=== PATIENT | female | born 1965 | race African-American/Black ===

== ENCOUNTER 2017-07-09 07:47 | Outpatient (CLI) | payer OTHER ==
[2012-10-27 00:18] VITALS: BP 136/89
--- NOTE | 2017-07-09 08:36 | Diagnostic Imaging Report ---
RICARDA COOK~ [facility] [address] [facility] [address] [address] ~ ~ ~ ~ Report Submission Date: Jul 09, 2017 8:24:20 AM FILLER FEEDER Patient ~ Study Name: JAMIE SANTANA ~ Date: Jul 09, 2017 8:05:35 AM FILLER FEEDER ~ Modality Type: DX Gender: F ~ Description: LOWER EXTREMITY : 63 ~ Institution: [facility] Physician: RICARDA COOK ~ ~ ~ Examination: Plain film left ankle History: LEFT ANKLE, CONTINUED PAIN AND SWELLING, LATERAL ANKLE, AFTER FALL X1 MONTH AGO (Hx) Findings: 3 views of the left ankle demonstrates small avulsion off the medial malleolus. Talar dome of the distal fibula appear to be intact. Soft tissue swelling. Joint effusion. Posterior calcaneal spur. Impression: Medial malleolar avulsion. Generalized soft tissue swelling and joint effusion. ~ Electronically signed on Jul 09, 2017 8:24:20 AM FILLER FEEDER by: Ry SANTOS
[2017-07-09 08:48] LABS: eGFR (African) > 60; eGFR (Non-African) > 60
[2017-07-09 08:53] LABS: MEAN CORPUSCULAR VOLUME 90.6 fl (80.0-100.0)
[2017-07-09 09:24] LABS: SEGMENTED NEUTROPHILS % 44 % (39-79)
[2017-07-09 09:25] LABS: BASOPHILS % 1 % (0-2); EOSINOPHILS % 4 % (0-7); MONOCYTES % 3 % (0-11); PLT EST. EST. AGREES W/PLT CT
== END 2017-07-09 07:50 ==
LOC: LAB 07:47
PROVIDERS: ATTEND Physician Assistant
DX: Z00.00 Encounter for general adult medical examination without abnormal findings (principal); E78.00 Pure hypercholesterolemia, unspecified; S99.912A Unspecified injury of left ankle, initial encounter; Y99.9 Unspecified external cause status
CPT/HCPCS: 36415; 73610; 80053; 80061; 85025

== ENCOUNTER 2017-08-30 16:31 | Inpatient (IN) | payer OTHER ==
[2017-08-30] MEDS ORDERED: IPRATROPIUM/ALBUTEROL SULFATE 3 ML AMPUL.NEB NEB PRN (17:10)
[2017-08-30 17:48] VITALS: BMI 26.9
--- NOTE | 2017-08-30 18:42 | History and Physical Report ---
History of Present Illnes - History of Present Illness Reason for Visit: dyspnea History of Present Illness: 52-year-old -[place] female who presented to the emergency room with a several day history of increasing shortness of breath dyspnea. Patient does have a history of COPD and asthma. Patient has been using her medications as prescribed but continues to have some problems. Patient was given several high flow nebulization treatments in the emergency room and was still only able to maintain her SaO2 on room air in the high 80s. Patient states that she is been having a productive cough of some green phlegm for the last week. Patient been having increasing shortness of breath dyspnea. Patient denies any chest pain. Patient is not had any fever or chills. Patient was subsequently admitted to the hospital for further care and evaluation. - Past Medical History Cardiac: HTN, Hyperlipidemia Pulmonary: Asthma, COPD - Past Surgical History Past Surgical History: Cholecystectomy, , Other (right arm laceration repair) - Past Social History Smoke: # pack years (40), <1 pack per day (7 cigarette / day) Alcohol: Occassional Drugs: None Lives: With Family Domestic Violence: Negative - Health Maintenance Health Maintenance: Cholesterol, Influenza Vaccine, Mammogram. denies: Pneumococcal Vaccine, Colonoscopy Influenza Vaccine: Current for this Influenza Season Pneumonia Vaccine: No Resuscitation Status: Resusciation Status Resuscitation Status Full Code - Unable to Obtain History Unable to Obtain: No Review of Systems - Review of Systems Constitutional: Fever (not sure how high), Chills Eyes: negative: pain ENT: Nose Congestion, Throat Pain. negative: Ear Pain, Ear Discharge, Nose Pain , Nose Discharge, Mouth Pain, Mouth Swelling Respiratory: Cough, Shortness of Breath, SOB with Excertion, Sputum (green thick ). negative: Hemoptysis Cardiovascular: Palpitations. negative: Chest Pain, Orthopnea, Paroxysmal Noc. Dyspnea, Edema Gastrointestinal: Diarrhea (this AM). negative: Nausea, Vomiting, Abdominal Pain, Constipation, Melena, Hematochezia Genitourinary: negative: Dysuria, Frequency, Incontinence, Hematuria Musculoskeletal: Back Pain (chronic). negative: Neck Pain Skin: negative: Rash Neurological: negative: Weakness, Numbness, Incoordination, Change in Speech, Confusion, Seizures - Medications/Allergies Allergies/Adverse Reactions: Allergies Allergy/AdvReac Type Severity Reaction Status Date / Time No Known Allergies Allergy Verified 08/30/17 14:42 Home Medications: Home Medications Fluticasone Propionate [Flovent Hfa] 2 inh INH PRN PRN 08/30/17 Current Inpatient Medications: Current Inpatient Medications Albuterol/Ipratropium (Duoneb) 3 ml NEB Q4 PRN PRN Reason: Wheezing Diltiazem HCl (Cardizem Cd) 120 mg PO DAILY BAKARI Methylprednisolone Sodium Succinate (Solu-Medrol) 80 mg IVP Q12 BAKARI Sodium Chloride (Normal Saline Flush) 3 ml IV BID BAKARI Exam - Exam Vital Signs: Vital Signs (72 hours) 08/30/17 08/30/17 16:16 17:01 Temperature 97.0 F L Pulse Rate [ 108 H Pulse ox] Respiratory 24 Rate Blood Pressure 156/93 Blood Pressure 156/93 146/95 [Right Arm] O2 Sat by Pulse 97 Oximetry General: Alert, Oriented to Person, Oriented to Place, Oriented to Time, Cooperative HEENT: Atraumatic, PERRLA, EOMI, Mouth Mucous membr. moist/[place], Nose Mucous membr. moist/[place], Dentition Normal Neck: Normal Range of Motion Carotids: WNL Thyroid: WNL Lungs: Normal air movement, Speaks full Sentences, Wheezes (mild expiratory). No: Rales, Rhonchi Cardiovascular: Normal S1, Normal S2, No murmurs, Tachycardia (mild) Murmur: No: Systolic Murmur, Diastolic Murmur Abdomen: Normal bowel sounds, Soft, No tenderness, No hepatospenomegaly, No masses Integumentary: Normal, [place], Warm, Dry Extremities: No clubbing, No cyanosis, No edema, Normal pulses, No tenderness/ swelling Neurological: Normal gait, Normal speech, Strength Equal Bilat, Normal tone, Sensation intact, Cranial nerves 3-12 NL, Reflexes 2+ Psych/Mental Status: Mental status NL, Mood NL, Appropriate Affect, Intact Judgment Assessment/Plan - Assessment/Plan (1) Acute exacerbation of COPD with asthma Status: Acute (2) Essential hypertension Status: Chronic Assessment: continue with home meds VTE Assessment - RISK FACTOR SCORE VTE RISK FACTOR SCORES: AGE 40-60 YEARS, ACUTE RESPIRATORY FAILURE/SEVERE COPD - RISK VTE MODERATE RISK: SCORE OF 2 (RISK PROXIMAL DVT 2-4%) PROPHYAXIS NEEDED
[2017-08-30] MEDS ORDERED: NICOTINE 14mg PATCH.TD24 TD ONE (19:26)
[2017-08-30] MEDS: guaiFENesin DM 100 MG/10 MG/5 ML 118ML BOTTLE PO PRN (19:34)
[2017-08-30] MEDS: SALINE FLUSH 10 ML DISP.SYRIN IV SCH (19:38)
[2017-08-30] MEDS: NICOTINE 14mg PATCH.TD24 TD SCH (20:33)
[2017-08-30] MEDS: IPRATROPIUM/ALBUTEROL SULFATE 3 ML AMPUL.NEB NEB SCH (20:58)
[2017-08-31] MEDS: guaiFENesin DM 100 MG/10 MG/5 ML 118ML BOTTLE PO PRN ×4 (01:07→17:11)
[2017-08-31] MEDS: IPRATROPIUM/ALBUTEROL SULFATE 3 ML AMPUL.NEB NEB SCH ×6 (01:11→21:00)
[2017-08-31] MEDS ORDERED: NICOTINE 14mg PATCH.TD24 TD ONE (03:06)
[2017-08-31] MEDS: SALINE FLUSH 10 ML DISP.SYRIN IV SCH ×2 (05:40→21:01)
[2017-08-31] MEDS: methylPREDNISolone SOD SUCC 40 MG/ML VIAL IVP SCH ×3 (05:52→19:54)
[2017-08-31 06:56] LABS: BASOPHILS % 0.2 (0.0-1.5); MONOCYTES % 2.1 % (0.0-11.0); NEUTROPHILS # 10.6 # k/uL (1.4-7.7)
[2017-08-31 07:14] LABS: eGFR (African) > 60; eGFR (Non-African) > 60
[2017-08-31 07:26] LABS: EOSINOPHILS % 0.3 % (0.0-6.8); MEAN CORPUSCULAR VOLUME 90.4 fl (80.0-100.0)
[2017-08-31 07:27] LABS: MEAN CORPUSCULAR HEMOGLOBIN 28.7 pg (28.0-34.0)
[2017-08-31] MEDS ORDERED: NICOTINE 14mg PATCH.TD24 TD SCH ×3 (09:00→21:10)
[2017-08-31] MEDS: NICOTINE 14mg PATCH.TD24 TD SCH ×2 (09:00→09:14)
[2017-08-31] MEDS: DILTIAZEM HCL 120 MG CAP.ER.24H PO SCH (09:11)
[2017-09-01] MEDS: IPRATROPIUM/ALBUTEROL SULFATE 3 ML AMPUL.NEB NEB SCH ×3 (01:48→08:11)
[2017-09-01] MEDS: DILTIAZEM HCL 120 MG CAP.ER.24H PO SCH (09:14)
[2017-09-01] MEDS: methylPREDNISolone SOD SUCC 40 MG/ML VIAL IVP SCH (09:17)
[2017-09-01] MEDS: SALINE FLUSH 10 ML DISP.SYRIN IV SCH (09:23)
--- NOTE | 2017-09-01 12:37 | Discharge Summary ---
Discharge Summary - Discharge Sumary History of Present Illness: 52-year-old -[place] female who presented to the emergency room with a several day history of increasing shortness of breath dyspnea. Patient does have a history of COPD and asthma. Patient has been using her medications as prescribed but continues to have some problems. Patient was given several high flow nebulization treatments in the emergency room and was still only able to maintain her SaO2 on room air in the high 80s. Patient states that she is been having a productive cough of some green phlegm for the last week. Patient been having increasing shortness of breath dyspnea. Patient denies any chest pain. Patient is not had any fever or chills. Patient was subsequently admitted to the hospital for further care and evaluation. Home Medications: Ambulatory Orders Medication Instructions Recorded Fluticasone Propionate [Flovent 2 inh INH PRN PRN 08/30/17 Hfa] Cyclobenzaprine HCl 5 mg PO Q6 PRN #20 tablet 09/01/17 Ipratropium/Albuterol Sulfate 3 ml NEB Q4 PRN #60 ampul[facility] 09/01/17 [Duoneb] predniSONE [Muna] 5 mg PO DIRECTED #72 tablet. 09/01/17 Allergies/Adverse Reactions: Allergies Allergy/AdvReac Type Severity Reaction Status Date / Time No Known Allergies Allergy Verified 08/30/17 14:42 Discharge Summary: Patient was started on nebulized treatments with DuoNeb Q6 hours. Patient was started on IVs steroid therapy. Patient with maintain on supplemental oxygen therapy until her breathing status improved that she could be weaned off of it. At the time to discharge patient was still having some mild wheezing that was able to ambulate and maintain SaO2 in the lower 90s. Patient hypertension was maintained on her home medications.It was felt at the time of dismissal patient could be managed as an outpatient. Patient was subsequently discharged in stable condition. Patient was encouraged to stop smoking. I did talk to the patient about smoking cessation helps that were available. - Final Diagnosis (1) Acute exacerbation of COPD with asthma Problems: improved (2) Essential hypertension Problems: stable
--- NOTE | 2017-09-01 12:37 | Inpatient Progress Note ---
Subjective - Required Recertification Statement I anticipate X number of days because-include discharge plan: 1 day - Review of Systems Events since last encounter: Patient states that she seems to be doing better at this time. Is still having some wheezing but chest is not as tight. General: Denies: Chills Cardiovascular: Denies: Chest Pain, Orthopnea Gastrointestinal: Denies: Nausea, Vomiting, Abdominal Pain, Diarrhea Objective - Exam Vitals and I&O: Vital Signs Temp 97.6 F 09/01/17 09:23 Pulse 118 H 09/01/17 09:23 Resp 20 09/01/17 09:23 BP 150/97 09/01/17 09:23 Pulse Ox 95 09/01/17 09:23 Intake & Output 08/31/17 09/01/17 09/01/17 23:59 11:59 23:59 Intake Total 1960 960 360 Balance 1959 960 360 Intake: IV 10 Left Antecubital 10 Oral 1950 960 360 Other: # Voids 2 2 General: Alert, Oriented to Person, Oriented to Place, Oriented to Time, Cooperative, No acute distress Neck: Supple, No JVD Lungs: Normal air movement, Speaks full Sentences, Wheezes (mild exspiratory R>L ). No: Rales, Rhonchi Cardiovascular: Regular rate, Normal S1, Normal S2, No murmurs Abdomen: Normal bowel sounds, Soft, No tenderness - Results Results: Laboratory Results WBC 12.99 K/ul (4.00-12.00) H 08/31/17 06:15 RBC 4.32 M/ul (3.90-5.20) 08/31/17 06:15 Hgb 12.4 g/dL (12.0-16.0) 08/31/17 06:15 Hct 39.0 % (34.5-46.5) 08/31/17 06:15 MCV 90.4 fl (80.0-100.0) 08/31/17 06:15 MCH 28.7 pg (28.0-34.0) 08/31/17 06:15 MCHC 31.8 g/dL (30.0-36.0) 08/31/17 06:15 RDW 13.4 % (11.3-14.3) 08/31/17 06:15 Plt Count 290 K/mm3 (130-400) 08/31/17 06:15 Neut % (Auto) 81.9 % (39.0-79.0) H 08/31/17 06:15 Lymph % (Auto) 14.7 % (16.0-50.0) L 08/31/17 06:15 Mineral % (Auto) 2.1 % (0.0-11.0) 08/31/17 06:15 Eos % (Auto) 0.3 % (0.0-6.8) 08/31/17 06:15 Baso % (Auto) 0.2 (0.0-1.5) 08/31/17 06:15 Neut # (Auto) 10.6 # k/uL (1.4-7.7) H 08/31/17 06:15 Lymph # (Auto) 1.9 # k/uL (0.6-4.0) 08/31/17 06:15 Mineral # (Auto) 0.3 # k/uL (0.0-0.9) 08/31/17 06:15 Eos # (Auto) 0.0 # k/uL (0.0-0.6) 08/31/17 06:15 Baso # (Auto) 0.0 # k/uL (0.0-0.5) 08/31/17 06:15 Reactive Lymphs % 0.7 % (0.0-5.0) 08/31/17 06:15 Reactive Lymphs # 0.1 # k/uL (0.0-0.8) 08/31/17 06:15 Sodium 142 mmol/L (136-145) 08/31/17 06:15 Potassium 3.9 mmol/L (3.5-5.1) 08/31/17 06:15 Chloride 103 mmol/L (98-107) 08/31/17 06:15 Carbon Dioxide 26 mmol/L (22-30) 08/31/17 06:15 BUN 11 mg/dL (7-17) 08/31/17 06:15 Creatinine 0.50 mg/dL (0.52-1.04) L 08/31/17 06:15 Estimated Creat Clear 177 08/31/17 06:15 Est GFR ( Amer) > 60 (60-) 08/31/17 06:15 Est GFR (Non-Af Amer) > 60 (60-) 08/31/17 06:15 Glucose 136 mg/dL (74-106) H 08/31/17 06:15 Calcium 9.0 mg/dL (8.4-10.2) 08/31/17 06:15 Total Bilirubin 0.8 mg/dL (0.2-1.3) 08/31/17 06:15 AST 18 U/L (15-46) 08/31/17 06:15 ALT 23 U/L (13-69) 08/31/17 06:15 Alkaline Phosphatase 108 U/L (38-126) 08/31/17 06:15 Total Protein 8.1 g/dL (6.3-8.2) 08/31/17 06:15 Albumin 4.1 g/dL (3.5-5.0) 08/31/17 06:15 Assessment/Plan - Assessment/Plan (1) Acute exacerbation of COPD with asthma Status: Acute Current Visit: Yes Assessment: improved hope to discharge in AM (2) Essential hypertension Status: Chronic Current Visit: Yes Assessment: stable on home meds
[2017-09-01 14:36] VITALS: BP 142/82
== END 2017-09-01 14:15 | disposition home or self-care (01) | DRG 192 ==
LOC: SOUTH 16:31
PROVIDERS: ADMIT Physician Assistant; ATTEND Physician Assistant
DX: J44.1 Chronic obstructive pulmonary disease with (acute) exacerbation (principal); F17.210 Nicotine dependence, cigarettes, uncomplicated; I10 Essential (primary) hypertension; E78.5 Hyperlipidemia, unspecified
CPT/HCPCS: 80053; 85025; 94640; 94760; J2920; 71045; 82550; 82553; 83880; 84484; 96372; 99222; 99232; 99238; J2930; J1030

== ENCOUNTER 2017-09-23 13:39 | Outpatient (CLI) | payer OTHER | END 2017-09-23 14:16 | LOC: LABRHC 13:39 | PROVIDERS: ATTEND Physician Assistant | DX: Z12.4 Encounter for screening for malignant neoplasm of cervix (principal) | CPT/HCPCS: 88148; G0143 ==

== ENCOUNTER 2018-06-08 13:49 | Emergency (ER) | payer OTHER | END 2018-06-08 16:30 | disposition other institution (70) | LOC: ED 13:49 | DX: J44.1 Chronic obstructive pulmonary disease with (acute) exacerbation (principal); Z72.0 Tobacco use | CPT/HCPCS: 36415; 71045; 80053; 80320; 80377; 83880; 84484; 85025; 94640; 94760; 96365; 96375; 99285; J2930; J3411; J3490; G0480; G0481; J7030 ==

== ENCOUNTER 2018-06-08 13:49 | Inpatient (IN) | payer OTHER ==
--- NOTE | 2018-06-08 13:56 | ED Physician Documentation ---
General Adult - HISTORIAN Historian: patient - HPI Stated Complaint: shortness of breath Chief Complaint: Wheezing Onset: other ("a few days" ) Timing: still present Severity: mild Further Comments: yes (She states that she has shortness of air for a few weeks and low back pain for years. she is intoxicated states she drank "at least a fifth of vodka" and she is drinking due to her nephews . Denies any chest pain. Denies any fever.) Last known Well Code/Unknown Code: Unknown - ROS CONST: no problems - PAST HX Past History: COPD, hypertension Surgeries/Procedures: none Immunizations: UTD Allergies/Adverse Reactions: Allergies Allergy/AdvReac Type Severity Reaction Status Date / Time No Known Allergies Allergy Verified 06/08/18 14:14 - SOCIAL HX Smoking History: cigarettes Alcohol Use: heavy Drug Use: none - FAMILY HX Family History: No - VITAL SIGNS Vital Signs: Vital Signs Temp Pulse Resp BP Pulse Ox 142/82 09/07/17 12:13 - REVIEWED ASSESSMENTS Nursing Assessment Reviewed: Yes Vitals Reviewed: Yes Progress - Progress Progress: 1420: decrease wheezing throughout post neb. She is sleeping. Awakens easily. Denies pain DG 1505: Sleeping in room. Awakens to name. Denies pain. Explained results she agrees to plan DG 1540: walking to rest room oxygen levels drop to 79% and recovery without oxygen is 88-89% DG ED Results Lab/Radiology - Radiology Radiology Impressions: History: Evaluate lungs Comparison exam: None available for direct review. Findings: Single view of the chest demonstrates a normal cardiac and mediastinal silhouette. Tortuous aorta with vascular calcifications. Lung alfaro without focal infiltrate. No blunting of the costophrenic margins. Osseous structures are appropriate for age. Impression: No acute pulmonary process. Electronically signed on Jun 08, 2018 2:15:05 PM DOPE POURER by: Ry Noriega General Adult Physical Exam - PHYSICAL EXAM GENERAL APPEARANCE: no distress EENT: eye inspection normal, pharynx normal, no signs of dehydration, VICTORIANO, TM's nml NECK: normal inspection, lymphadenopathy (Submandibular left approx 3 cm firm non moveable - mild pain with palpation there for 2 days ("maybe 3"_)) RESPIRATORY: chest non-tender, wheezes CVS: reg rate & rhythm, heart sounds normal ABDOMEN: soft, normal bowel sounds, non-tender BACK: normal inspection SKIN: warm/dry, normal color EXTREMITIES: non-tender NEURO: oriented X3, speech/cognition abnml Discharge Clincal Impression: Acute exacerbation of COPD with asthma Elevated ETOH level Qualifiers: Blood alcohol level: 200-239 mg/100 ml Qualified Code(s): Y90.7 - Blood alcohol level of 200-239 mg/100 ml Comments: 1640: discussed case with Dr Kowalski and she will admit DG Condition: Fair Disposition: 09 ADMITTED INPATIENT Decision to Admit: [id number] Date of Decison to Admit: 06/08/18 Decision Time: 16:40
[2018-06-08] MEDS ORDERED: IPRATROPIUM/ALBUTEROL SULFATE 3 ML AMPUL.NEB NEB ONE ×2 (13:59→14:00)
[2018-06-08 14:18] LABS: BASOPHILS % 0.6 (0.0-1.5); EOSINOPHILS % 1.5 % (0.0-6.8); MEAN CORPUSCULAR HEMOGLOBIN 29.2 pg (28.0-34.0); MONOCYTES % 4.1 % (0.0-11.0); NEUTROPHILS # 4.8 # k/uL (1.4-7.7)
[2018-06-08 14:44] LABS: eGFR (Non-African) > 60
[2018-06-08] MEDS ORDERED: THIAMINE HCL 100 MG, MULTIVIT INFUSN,ADULT 1,VIT K 10 ML, FOLIC ACID 5 MG in 0.9 % SODI... IV ONE (14:49)
[2018-06-08] MEDS ORDERED: 0.9 % SODIUM CHLORIDE 1,000 ML IV ONE (14:53)
[2018-06-08] MEDS ORDERED: FOLIC ACID 5 MG/1 ML ONE (14:53)
[2018-06-08] MEDS ORDERED: THIAMINE HCL 200 MG/2 ML VIAL ONE (14:53)
[2018-06-08] MEDS ORDERED: MULTIVIT INFUSN,ADULT 1,VIT K 10 ML VIAL IV ONE (14:54)
[2018-06-08] MEDS ORDERED: methylPREDNISolone SOD SUCC 125 MG/2 ML VIAL IVP ONE (15:42)
[2018-06-08] MEDS: IPRATROPIUM/ALBUTEROL SULFATE 3 ML AMPUL.NEB NEB SCH ×2 (17:45→21:11)
[2018-06-08 17:51] LABS: APPEARANCE,URINE CLEAR (CLEAR); COLOR,URINE YELLOW (YELLOW)
[2018-06-08 17:52] LABS: OCCULT BLOOD,URINE TRACE (NEGATIVE); PH URINE 5.5 (5.0 - 8.0); UROBILINOGEN URINE 0.2 Eu (0.2-1.0)
[2018-06-08 17:55] LABS: CANNABINOIDS NEGATIVE ng/mL (< 50)
[2018-06-08 17:57] LABS: METHYLENEDIOXYMETHAMPHETAMINE NEGATIVE ng/mL (<500)
[2018-06-08] MEDS: 0.9 % SODIUM CHLORIDE 1,000 ML IV SCH (19:19)
[2018-06-08] MEDS: AMOXICILLIN 500 MG CAPSULE PO SCH (19:19)
--- NOTE | 2018-06-08 19:43 | History and Physical Report ---
History of Present Illnes - History of Present Illness Reason for Visit: SOB History of Present Illness: Patient with h/o COPD and asthma presents to ER via EMS for SOB. She has had a URI for several days. Progressively has had more congestion, worse cough, wheezing and difficulty catching her breath. SAT on ambulation 75%. Given duoneb and solumedrol in ER. Good response. She was visibly intoxicated - BAL 270. Reports drinking more today than normal because her nephew was killed in a MVA yesterday. - Past Medical History Cardiac: HTN, Hyperlipidemia Pulmonary: Asthma, COPD Psych: Addictions (Alcohol) - Past Surgical History Past Surgical History: Cholecystectomy, , Other - Past Family History Mother Family History: Father Family History: - Past Social History Smoke: # pack years, <1 pack per day Alcohol: Occassional (Patient says 4-5 beers twice a week; ) Drugs: None Lives: Alone Domestic Violence: Negative - Health Maintenance Health Maintenance: Cholesterol, Influenza Vaccine, Mammogram Influenza Vaccine: Current for this Influenza Season Pneumonia Vaccine: No Resuscitation Status: Resusciation Status Resuscitation Status Full Code Review of Systems - Review of Systems Constitutional: negative: Fever, Weakness Eyes: negative: conjunctivae inflammation ENT: Nose Discharge, Nose Congestion. negative: Ear Pain Respiratory: Cough, Shortness of Breath, Wheezing Cardiovascular: negative: Chest Pain Gastrointestinal: Diarrhea (chronic). negative: Nausea, Vomiting, Abdominal Pain Genitourinary: negative: Dysuria Musculoskeletal: negative: Neck Pain Skin: negative: Rash Neurological: negative: Weakness - Medications/Allergies Allergies/Adverse Reactions: Allergies Allergy/AdvReac Type Severity Reaction Status Date / Time No Known Allergies Allergy Verified 06/08/18 14:14 Current Inpatient Medications: Current Inpatient Medications Albuterol/Ipratropium (Duoneb) 3 ml NEB Q4 [facility] Last Admin: 06/08/18 17:45 Dose: 3 ml Amoxicillin (Amoxil) 500 mg PO TID [facility] Last Admin: 06/08/18 19:19 Dose: 500 mg Diltiazem HCl (Cardizem Cd) 120 mg PO DAILY [facility] Sodium Chloride (Normal Saline) 1,000 mls @ 100 mls/hr IV Q10H [facility] Last Admin: 06/08/18 19:19 Dose: 100 mls/hr Methylprednisolone Sodium Succinate (Solu-Medrol) 80 mg IVP Q8 BAK[facility]I Exam - Exam Vital Signs: Vital Signs (72 hours) 06/08/18 06/08/18 06/08/18 13:50 13:52 13:56 Temperature 98.7 F Pulse Rate 100 H Pulse Rate [ 105 H 104 H Apical] Pulse Rate [ Right] Respiratory 16 Rate Blood Pressure 121/85 [Right Arm] O2 Sat by Pulse 95 98 Oximetry 06/08/18 06/08/18 06/08/18 14:56 15:16 15:52 Temperature Pulse Rate 95 H 97 H 86 Pulse Rate [ Apical] Pulse Rate [ Right] Respiratory Rate Blood Pressure [Right Arm] O2 Sat by Pulse Oximetry 06/08/18 06/08/18 06/08/18 16:00 16:59 17:15 Temperature 98.6 F Pulse Rate 113 H Pulse Rate [ 112 H Apical] Pulse Rate [ 119 H Right] Respiratory 20 20 Rate Blood Pressure 127/82 137/78 [Right Arm] O2 Sat by Pulse 92 94 Oximetry 06/08/18 06/08/18 17:32 17:34 Temperature 98.6 F 98.6 F Pulse Rate Pulse Rate [ Apical] Pulse Rate [ 119 H Right] Respiratory 20 20 Rate Blood Pressure 137/78 137/78 [Right Arm] O2 Sat by Pulse 94 94 Oximetry General: Alert, Oriented to Person, Oriented to Place, Oriented to Time, Cooperative, No acute distress HEENT: Atraumatic, PERRLA, EOMI, Mouth Mucous membr. moist/[place], Other (3x[address] under L mandibular angle.) Neck: Normal Range of Motion Lungs: Wheezes, Rhonchi Cardiovascular: Regular rate Abdomen: Normal bowel sounds, Soft, No tenderness Integumentary: Normal Extremities: No edema Neurological: Normal gait, Strength Equal Bilat. No: Normal speech (slurred) Psych/Mental Status: Mental status NL, Mood NL, Appropriate Affect. No: Intact Judgment (intoxicated) - Laboratory Results Laboratory Results: Laboratory Results 06/08/18 06/08/18 06/08/18 13:55 15:40 15:40 WBC 8.30 RBC 4.83 Hgb 14.1 Hct 42.9 MCV 89.0 MCH 29.2 MCHC 32.9 RDW 14.7 H Plt Count 307 Neut % (Auto) 57.2 Lymph % (Auto) 36.6 [place] % (Auto) 4.1 Eos % (Auto) 1.5 Baso % (Auto) 0.6 Neut # (Auto) 4.8 Lymph # (Auto) 3.1 [place] # (Auto) 0.3 Eos # (Auto) 0.1 Baso # (Auto) 0.1 Sodium Potassium Chloride Carbon Dioxide BUN Creatinine Estimated Creat Clear Est GFR ( Amer) Est GFR (Non-Af Amer) Glucose Calcium Total Bilirubin AST ALT Alkaline Phosphatase Troponin I NT-Pro-B Natriuret Pep Total Protein Albumin Urine Color Yellow Urine Appearance Clear Urine pH 5.5 Ur Specific [place] 1.010 Urine Protein Negative Urine Ketones Negative Urine Occult Blood Trace Urine Nitrite Negative Urine Bilirubin Negative Urine Urobilinogen 0.2 Ur Leukocyte Esterase Negative Urine Glucose Negative Opiates Screen Negative Oxycodone Screen Negative Methadone Screen Negative Ur Barbiturates Screen Negative Tricyclic Antidepress Negative Phencyclidine Screen Negative Amphetamines Screen Negative U Methamphetamines Scrn Negative MDMA Negative Benzodiazepines Screen Negative Urine Cocaine Screen Negative U Cannabinoids Screen Negative Ethyl Alcohol 06/08/18 06/08/18 06/08/18 Unknown Unknown Unknown WBC RBC Hgb Hct MCV MCH MCHC RDW Plt Count Neut % (Auto) Lymph % (Auto) [place] % (Auto) Eos % (Auto) Baso % (Auto) Neut # (Auto) Lymph # (Auto) [place] # (Auto) Eos # (Auto) Baso # (Auto) Sodium 142 Potassium 4.4 Chloride 104 Carbon Dioxide 21 L BUN 9 Creatinine 0.55 Estimated Creat Clear 147 Est GFR ( Amer) > 60 Est GFR (Non-Af Amer) > 60 Glucose 94 Calcium 8.9 Total Bilirubin 0.3 AST 30 ALT 21 Alkaline Phosphatase 76 Troponin I < 0.03 L NT-Pro-B Natriuret Pep 19.9 Total Protein 8.1 Albumin 4.7 Urine Color Urine Appearance Urine pH Ur Specific [place] Urine Protein Urine Ketones Urine Occult Blood Urine Nitrite Urine Bilirubin Urine Urobilinogen Ur Leukocyte Esterase Urine Glucose Opiates Screen Oxycodone Screen Methadone Screen Ur Barbiturates Screen Tricyclic Antidepress Phencyclidine Screen Amphetamines Screen U Methamphetamines Scrn MDMA Benzodiazepines Screen Urine Cocaine Screen U Cannabinoids Screen Ethyl Alcohol 282.5 H Assessment/Plan - Assessment/Plan (1) Acute exacerbation of COPD with asthma Status: Acute Current Visit: Yes Plan: Admit for IV solumedrol, duonebs, and O2 to keep SAT's > 90%. No signs of pneumonia - afebrile, nl WBC, negative CXR Lovenox for DVT prevention. Will give pneumovax 23 at discharge. (2) Elevated ETOH level Status: Acute Current Visit: Yes Qualifiers: Blood alcohol level: 200-239 mg/100 ml Qualified Code(s): Y90.7 - Blood alcohol level of 200-239 mg/100 ml Plan: Banana bag given in ER. Patient reports she doesn't drink every day - never has issues with withdrawl. Watch closely. Give thiamin po. (3) Essential hypertension Status: Chronic Current Visit: No Plan: Continue cardizem (4) LAD (lymphadenopathy), cervical Status: Acute Current Visit: Yes Plan: Plan amoxil for infection. New onset. Watch closely. VTE Assessment - RISK FACTOR SCORE VTE RISK FACTOR SCORES: AGE 40-60 YEARS, ANTICIPATED BED CONFINEMENT OR IM MOBILIZATION > 24 HOURS - RISK VTE MODERATE RISK: SCORE OF 2 (RISK PROXIMAL DVT 2-4%) PROPHYAXIS NEEDED
[2018-06-08 20:24] VITALS: BMI 56.9
--- NOTE | 2018-06-08 20:47 | Diagnostic Imaging Report ---
JOE DE ANDA [facility] [address] [facility] [address] [address] Report Submission Date: Jun 08, 2018 2:15:05 PM SDET Patient Study Name: JAMIE SANTANA Date: Jun 08, 2018 1:58:04 PM SDET Modality Type: DX Gender: F Description: CHEST 1VIEW : 63 Institution: [facility] Physician: JOE DE ANDA Examination: Portable chest History: Evaluate lungs Comparison exam: None available for direct review. Findings: Single view of the chest demonstrates a normal cardiac and mediastinal silhouette. Tortuous aorta with vascular calcifications. Lung alfaro without focal infiltrate. No blunting of the costophrenic margins. Osseous structures are appropriate for age. Impression: No acute pulmonary process. Electronically signed on Jun 08, 2018 2:15:05 PM SDET by: Ry SANTOS
[2018-06-08] MEDS: NICOTINE 21mg 1 EACH PATCH.TD24 TD SCH (20:56)
[2018-06-08] MEDS: ENOXAPARIN SODIUM 40 MG/0.4 ML DISP.SYRIN SQ SCH (20:57)
[2018-06-08] MEDS ORDERED: methylPREDNISolone SOD SUCC 40 MG/ML VIAL IVP SCH (21:00)
[2018-06-08] MEDS: methylPREDNISolone SOD SUCC 40 MG/ML VIAL IVP SCH (21:10)
[2018-06-09] MEDS: IPRATROPIUM/ALBUTEROL SULFATE 3 ML AMPUL.NEB NEB SCH ×2 (01:32→05:31)
[2018-06-09] MEDS: 0.9 % SODIUM CHLORIDE 1,000 ML IV SCH ×2 (05:39→16:10)
[2018-06-09] MEDS: methylPREDNISolone SOD SUCC 40 MG/ML VIAL IVP SCH ×3 (05:56→20:25)
[2018-06-09 07:21] LABS: BASOPHILS % 0.3 (0.0-1.5); EOSINOPHILS % 0.7 % (0.0-6.8); MEAN CORPUSCULAR HEMOGLOBIN 28.7 pg (28.0-34.0); MONOCYTES % 1.1 % (0.0-11.0)
[2018-06-09 07:22] LABS: NEUTROPHILS # 5.2 # k/uL (1.4-7.7)
[2018-06-09 08:00] LABS: eGFR (Non-African) > 60
--- NOTE | 2018-06-09 08:21 | Inpatient Progress Note ---
Subjective - Required Recertification Statement I anticipate X number of days because-include discharge plan: 1 - Review of Systems Subjective: Patient complains of more coughing. Has light yellow sputum to see me. Breathing feels a little better. Duonebs held due to HR 120's. Objective - Exam Vitals and I&O: Vital Signs Temp 97.2 F L 06/09/18 06:00 Pulse 104 H 06/09/18 07:59 Resp 18 06/09/18 06:00 BP 147/85 06/09/18 06:00 Pulse Ox 95 06/09/18 08:00 Intake & Output 06/08/18 06/08/18 06/09/18 11:59 23:59 11:59 Intake Total 1120 1900 Output Total 300 900 Balance 820 1000 Weight 160 kg Intake: IV 400 800 Left Hand 400 800 Oral 720 1100 Output: Urine 300 900 Other: Voiding Method Toilet Toilet # Voids 2 General: Alert, Oriented to Person, Oriented to Place, Oriented to Time, Cooperative, No acute distress Lungs: Wheezes Cardiovascular: Regular rate - Results Results: Laboratory Results WBC 6.40 K/ul (4.00-12.00) 06/09/18 07:00 RBC 4.79 M/ul (3.90-5.20) 06/09/18 07:00 Hgb 13.8 g/dL (12.0-16.0) 06/09/18 07:00 Hct 42.4 % (34.5-46.5) 06/09/18 07:00 MCV 89.0 fl (80.0-100.0) 06/09/18 07:00 MCH 28.7 pg (28.0-34.0) 06/09/18 07:00 MCHC 32.5 g/dL (30.0-36.0) 06/09/18 07:00 RDW 14.8 % (11.3-14.3) H 06/09/18 07:00 Plt Count 271 K/mm3 (130-400) 06/09/18 07:00 Neut % (Auto) 81.5 % (39.0-79.0) H 06/09/18 07:00 Lymph % (Auto) 16.4 % (16.0-50.0) 06/09/18 07:00 [place] % (Auto) 1.1 % (0.0-11.0) 06/09/18 07:00 Eos % (Auto) 0.7 % (0.0-6.8) 06/09/18 07:00 Baso % (Auto) 0.3 (0.0-1.5) 06/09/18 07:00 Neut # (Auto) 5.2 # k/uL (1.4-7.7) 06/09/18 07:00 Lymph # (Auto) 1.1 # k/uL (0.6-4.0) 06/09/18 07:00 [place] # (Auto) 0.1 # k/uL (0.0-0.9) 06/09/18 07:00 Eos # (Auto) 0.0 # k/uL (0.0-0.6) 06/09/18 07:00 Baso # (Auto) 0.0 # k/uL (0.0-0.5) 06/09/18 07:00 Sodium 139 mmol/L (136-145) 06/09/18 07:00 Potassium 4.5 mmol/L (3.5-5.1) 06/09/18 07:00 Chloride 103 mmol/L (98-107) 06/09/18 07:00 Carbon Dioxide 26 mmol/L (22-30) 06/09/18 07:00 BUN 13 mg/dL (7-17) 06/09/18 07:00 Creatinine 0.61 mg/dL (0.52-1.04) 06/09/18 07:00 Estimated Creat Clear 313 06/09/18 07:00 Est GFR ( Amer) > 60 (60-) 06/09/18 07:00 Est GFR (Non-Af Amer) > 60 (60-) 06/09/18 07:00 Glucose 139 mg/dL (74-106) H 06/09/18 07:00 Calcium 8.8 mg/dL (8.4-10.2) 06/09/18 07:00 Total Bilirubin 0.3 mg/dL (0.2-1.3) 06/09/18 07:00 AST 23 U/L (15-46) 06/09/18 07:00 ALT 27 U/L (13-69) 06/09/18 07:00 Alkaline Phosphatase 77 U/L (38-126) 06/09/18 07:00 Troponin I < 0.03 ng/mL (0.03-0.06) L 06/08/18 Unknown NT-Pro-B Natriuret Pep 19.9 pg/mL (15.0-125.0) 06/08/18 Unknown Total Protein 7.6 g/dL (6.3-8.2) 06/09/18 07:00 Albumin 4.4 g/dL (3.5-5.0) 06/09/18 07:00 Urine Color Yellow (YELLOW) 06/08/18 15:40 Urine Appearance Clear (CLEAR) 06/08/18 15:40 Urine pH 5.5 (5.0 - 8.0) 06/08/18 15:40 Ur Specific [place] 1.010 (1.010-1.030) 06/08/18 15:40 Urine Protein Negative mg/dL (NEGATIVE) 06/08/18 15:40 Urine Ketones Negative mg/dL (NEGATIVE) 06/08/18 15:40 Urine Occult Blood Trace (NEGATIVE) 06/08/18 15:40 Urine Nitrite Negative (NEGATIVE) 06/08/18 15:40 Urine Bilirubin Negative (NEGATIVE) 06/08/18 15:40 Urine Urobilinogen 0.2 Eu (0.2-1.0) 06/08/18 15:40 Ur Leukocyte Esterase Negative (NEGATIVE) 06/08/18 15:40 Urine Glucose Negative mg/dL (NEGATIVE) 06/08/18 15:40 Opiates Screen Negative ng/mL (<300) 06/08/18 15:40 Oxycodone Screen Negative ng/mL (<100) 06/08/18 15:40 Methadone Screen Negative ng/mL (<200) 06/08/18 15:40 Ur Barbiturates Screen Negative ng.mL (<200) 06/08/18 15:40 Tricyclic Antidepress Negative ng/mL (<300) 06/08/18 15:40 Phencyclidine Screen Negative ng/mL (< 25) 06/08/18 15:40 Amphetamines Screen Negative ng/mL (<500) 06/08/18 15:40 U Methamphetamines Scrn Negative ng/mL (<500) 06/08/18 15:40 MDMA Negative ng/mL (<500) 06/08/18 15:40 Benzodiazepines Screen Negative ng/mL (<150) 06/08/18 15:40 Urine Cocaine Screen Negative ng/mL (<150) 06/08/18 15:40 U Cannabinoids Screen Negative ng/mL (< 50) 06/08/18 15:40 Ethyl Alcohol 282.5 mg/dL (0.0-10.0) H 06/08/18 Unknown Assessment/Plan - Assessment/Plan (1) Acute exacerbation of COPD with asthma Status: Acute Current Visit: Yes Plan: Continue O2 as needed as well as IV steroids. Lovenox for DVT prevention. Nicotine patch for nicotine cravings. Will write for atrovent and xopenex due to tachycardia. (2) Elevated ETOH level Status: Acute Current Visit: Yes Qualifiers: Blood alcohol level: 200-239 mg/100 ml Qualified Code(s): Y90.7 - Blood alcohol level of 200-239 mg/100 ml (3) Essential hypertension Status: Chronic Current Visit: No (4) LAD (lymphadenopathy), cervical Status: Acute Current Visit: Yes (5) Sinus tachycardia Status: Acute Current Visit: Yes Plan: Patient likely hasn't been taking her cardizem. Get her back on that. Watch.
[2018-06-09] MEDS: AMOXICILLIN 500 MG CAPSULE PO SCH ×3 (09:02→17:40)
[2018-06-09] MEDS: DILTIAZEM HCL 120 MG CAP.ER.24H PO SCH (09:03)
[2018-06-09] MEDS: IPRATROPIUM BROMIDE 0.5 MG/2.5 ML AMPUL.NEB NEB SCH ×4 (09:04→21:20)
[2018-06-09] MEDS: LEVALBUTEROL NEB 1.25 MG/3 ML VIAL.NEB IH SCH ×4 (09:10→21:29)
[2018-06-09] MEDS: GUAIFENESIN/CODEINE 10 ML S/F LIQUID DOSE CUP PO PRN ×2 (09:12→17:48)
[2018-06-09] MEDS: ENOXAPARIN SODIUM 40 MG/0.4 ML DISP.SYRIN SQ SCH (11:18)
[2018-06-09] MEDS: NICOTINE 21mg 1 EACH PATCH.TD24 TD SCH (11:18)
[2018-06-09] MEDS ORDERED: ENOXAPARIN SODIUM 40 MG/0.4 ML DISP.SYRIN SQ SCH (21:00)
[2018-06-09] MEDS ORDERED: diphenhydrAMINE HCL 25 MG TABLET PO ONE (21:00)
[2018-06-09] MEDS ORDERED: NICOTINE 21mg 1 EACH PATCH.TD24 TD SCH (21:00)
[2018-06-10] MEDS: 0.9 % SODIUM CHLORIDE 1,000 ML IV SCH ×2 (01:35→09:51)
[2018-06-10] MEDS: IPRATROPIUM BROMIDE 0.5 MG/2.5 ML AMPUL.NEB NEB SCH ×3 (01:48→09:05)
[2018-06-10] MEDS: LEVALBUTEROL NEB 1.25 MG/3 ML VIAL.NEB IH SCH ×3 (02:01→08:19)
[2018-06-10] MEDS: methylPREDNISolone SOD SUCC 40 MG/ML VIAL IVP SCH (05:35)
[2018-06-10] MEDS: GUAIFENESIN/CODEINE 10 ML S/F LIQUID DOSE CUP PO PRN (06:23)
--- NOTE | 2018-06-10 07:58 | Discharge Summary ---
Discharge Summary - Discharge Sumary History of Present Illness: Patient with h/o COPD and asthma presents to ER via EMS for SOB. She has had a URI for several days. Progressively has had more congestion, worse cough, wheezing and difficulty catching her breath. SAT on ambulation 75%. Given duoneb and solumedrol in ER. Good response. She was visibly intoxicated - BAL 270. Reports drinking more today than normal because her nephew was killed in a MVA yesterday. Condition at Discharge: Stable Home Medications: Ambulatory Orders Medication Instructions Recorded Albuterol Sulfate [Proair Hfa] 2 inhalation IH Q 4-6 HRS PRN #1 06/09/18 each Amoxicillin [Trimox] 500 mg PO TID #20 capsule 06/09/18 Diltiazem HCl [Cardizem CD] 120 mg PO DAILY #30 cap.er.24h 06/09/18 NICOTINE 21mg [HABITROL 21mg] 1 each TD DAILY #14 patch.td24 06/09/18 predniSONE [Deltasone] 40 mg PO QDAY #10 tablet 06/09/18 Consultations this Visit: None Procedures this Visit: None Allergies/Adverse Reactions: Allergies Allergy/AdvReac Type Severity Reaction Status Date / Time No Known Allergies Allergy Verified 06/08/18 14:14 Patient Problems: Current Active Problems Problem Status Onset Acute exacerbation of COPD with asthma Acute Elevated ETOH level Acute LAD (lymphadenopathy), cervical Acute Sinus tachycardia Acute Discharge Summary: Patient responded well to IV steroids and O2 for her COPD exacerbation. Duoneb was switched to xopenex and atrovent due to tachycardia. Once her diltiazem was given, HR improved. O2 weaned to off. Patient will be sent on steroid burst and antibiotics for her L cervical LAD. Nicotine patch worked well for smoking craving. Will continue as outpatient. Hospital Course: Discharge Dx: COPD exacerbation. Intoxication. HTN with tachycardia. Disposition - home
[2018-06-10] MEDS: DILTIAZEM HCL 120 MG CAP.ER.24H PO SCH (08:18)
[2018-06-10] MEDS: AMOXICILLIN 500 MG CAPSULE PO SCH (08:18)
[2018-06-10 08:39] VITALS: BP 158/63
[2018-06-10] MEDS ORDERED: PNEUMOCOCCAL 23-VAL IM ONE (09:02)
== END 2018-06-10 09:35 | disposition home or self-care (01) | DRG 192 ==
LOC: ED 13:49 → SOUTH 16:30
PROVIDERS: ADMIT Family Medicine; ATTEND Family Medicine
DX: J44.1 Chronic obstructive pulmonary disease with (acute) exacerbation (principal); I10 Essential (primary) hypertension; E78.5 Hyperlipidemia, unspecified; R00.8 Other abnormalities of heart beat; R59.1 Generalized enlarged lymph nodes; F17.210 Nicotine dependence, cigarettes, uncomplicated; Z23 Encounter for immunization
CPT/HCPCS: 80053; 80320; 81002; 85025; 90471; 90732; 94760; J1650; J2920; J7030; J7614; Q0163; 36415; 71045; 80377; 83880; 84484; 94640; 99222; 99232; 99238; J2930; J3411; J3490; G0480; G0481; J1030

== ENCOUNTER 2018-06-19 20:28 | Inpatient (IN) | payer OTHER ==
--- NOTE | 2018-06-19 20:44 | ED Physician Documentation ---
General Adult - HISTORIAN Historian: patient - HPI Stated Complaint: shortness of breath Chief Complaint: General Adult Onset: days ago Timing: still present Severity: moderate Further Comments: yes (Pt is a 53 yo female with hx COPD and recent hospitalization here for sob. She was d/c'd to home 06/10/18. Pt states that she has been getting increasingly sob and coughing over the past week. Temp on presentation was 100.5. Pt had a recent course of Amoxicillin.) - ROS CONST: chills EYES/ENT: none CVS/RESP: chest pain, shortness of breath, cough GI/: none MS/SKIN/LYMPH: none - PAST HX Past History: COPD, hypertension Surgeries/Procedures: , other (appendectomy) Allergies/Adverse Reactions: Allergies Allergy/AdvReac Type Severity Reaction Status Date / Time No Known Allergies Allergy Verified 06/19/18 20:51 Home Medications: Ambulatory Orders Medication Instructions Recorded Albuterol Sulfate [Proair Hfa] 2 inhalation IH Q 4-6 HRS PRN #1 06/09/18 each Amoxicillin [Trimox] 500 mg PO TID #20 capsule 06/09/18 Diltiazem HCl [Cardizem CD] 120 mg PO DAILY #30 cap.er.24h 06/09/18 - SOCIAL HX Smoking History: cigarettes Alcohol Use: heavy - FAMILY HX Family History: No - VITAL SIGNS Vital Signs: Vital Signs Temp Pulse Resp BP Pulse Ox 158/63 06/10/18 08:37 - REVIEWED ASSESSMENTS Nursing Assessment Reviewed: Yes Vitals Reviewed: Yes Progress - Progress Progress: CXR: Clinical history: Shortness of breath. Cough. Findings: Examination of the chest in single portable AP view with comparison to examination of 06/08/2018 demonstrates mild prominence of the bronchovascular markings. There is no coalescent infiltrate. Small left effusion blunts the costophrenic angle. Cardiovascular and mediastinal silhouettes are stable. Impression: 1. Left pleural effusion. 2. Prominence of the bronchovascular markings. Influenza A & B - neg Duoneb HFN Solu-medrol 125 mg IV Robitussin AC NS 500 cc IVF Admit to Dr. Lau. - EKG/XRAY/CT EKG: rhythm (sinus tachycardia, WN=661; normal axis; normal PA interval.) General Adult Physical Exam - PHYSICAL EXAM GENERAL APPEARANCE: moderate distress EENT: eye inspection normal, pharynx normal, TM's nml NECK: normal inspection, supple RESPIRATORY: wheezes CVS: reg rate & rhythm, heart sounds normal ABDOMEN: soft, no organomegaly, normal bowel sounds BACK: normal inspection SKIN: warm/dry, normal color EXTREMITIES: non-tender, normal range of motion, no evidence of injury NEURO: oriented X3, motor nml, sensation nml Discharge Clincal Impression: COPD exacerbation Condition: Stable Disposition: 09 ADMITTED INPATIENT Decision to Admit: [id number] Decision Time: 23:43
[2018-06-19] MEDS ORDERED: IPRATROPIUM/ALBUTEROL SULFATE 3 ML AMPUL.NEB NEB ONE (20:50)
--- NOTE | 2018-06-19 21:59 | Diagnostic Imaging Report ---
TARSHA SHERMAN [facility] [address] [facility] [address] [address] Report Submission Date: Jun 19, 2018 9:54:49 PM PHARMACEUTICAL ASSISTANT Patient Study Name: JAMIE SANTANA Date: Jun 19, 2018 9:37:10 PM PHARMACEUTICAL ASSISTANT Modality Type: DX Gender: F Description: CHEST 1VIEW : 63 Institution: [facility] Physician: TARSHA SHERMAN Portable chest Clinical history: Shortness of breath. Cough. Findings: Examination of the chest in single portable AP view with comparison to examination of 06/08/2018 demonstrates mild prominence of the bronchovascular markings. There is no coalescent infiltrate. Small left effusion blunts the costophrenic angle. Cardiovascular and mediastinal silhouettes are stable. Impression: 1. Left pleural effusion. 2. Prominence of the bronchovascular markings. Electronically signed on Jun 19, 2018 9:54:49 PM PHARMACEUTICAL ASSISTANT by: Mesfin SANTOS
[2018-06-19] MEDS ORDERED: methylPREDNISolone SOD SUCC 125 MG/2 ML VIAL IVP ONE (22:29)
[2018-06-19] MEDS ORDERED: 0.9 % SODIUM CHLORIDE 500 ML IV ONE (22:35)
[2018-06-19] MEDS ORDERED: GUAIFENESIN/CODEINE 10 ML S/F LIQUID DOSE CUP PO ONE (22:56)
[2018-06-20] MEDS: GUAIFENESIN/CODEINE 10 ML S/F LIQUID DOSE CUP PO PRN ×4 (01:14→20:51)
[2018-06-20] MEDS: NICOTINE 21mg 1 EACH PATCH.TD24 TD SCH ×2 (01:16→09:00)
[2018-06-20 04:10] VITALS: BMI 58.6
[2018-06-20 08:03] LABS: MEAN CORPUSCULAR HEMOGLOBIN 29.1 pg (28.0-34.0)
[2018-06-20 08:04] LABS: BASOPHILS % 0.4 (0.0-1.5); EOSINOPHILS % 0.9 % (0.0-6.8); MONOCYTES % 1.3 % (0.0-11.0); NEUTROPHILS # 12.1 # k/uL (1.4-7.7)
[2018-06-20 08:05] LABS: eGFR (Non-African) > 60
[2018-06-20] MEDS ORDERED: AMOXICILLIN 500 MG CAPSULE PO ONE (08:32)
[2018-06-20] MEDS: DILTIAZEM HCL 120 MG CAP.ER.24H PO SCH (08:45)
[2018-06-20] MEDS: ALBUTEROL SULFATE 2.5 MG/3 ML AMPUL.NEB NEB PRN ×2 (08:50→12:59)
[2018-06-20] MEDS ORDERED: AMOXICILLIN 500 MG CAPSULE PO SCH (09:00)
[2018-06-20] MEDS: SALINE FLUSH 10 ML DISP.SYRIN IV SCH ×2 (09:00→21:04)
[2018-06-20] MEDS: methylPREDNISolone SOD SUCC 40 MG/ML VIAL IVP SCH ×2 (09:01→20:51)
[2018-06-20 09:05] LABS: eGFR (Non-African) > 60
[2018-06-20 09:06] LABS: BASOPHILS % 0.9 (0.0-1.5); EOSINOPHILS % 1.4 % (0.0-6.8); MONOCYTES % 5.6 % (0.0-11.0); NEUTROPHILS # 8.9 # k/uL (1.4-7.7)
--- NOTE | 2018-06-20 11:43 | History and Physical Report ---
History of Present Illnes - History of Present Illness Reason for Visit: Cough/dyspnea/COPD exacerbation History of Present Illness: This is a 53 year old female who was admitted earlier this month for a COPD exacerbation who had gotten transiently better. She has been having some added stress in that her nephew recently and his was yesterday. In addition, she has continued to smoke since discharge. She said that yesterday, she was coughing so hard that she could not catch her breath. She came to the emergency room for evaluation, and was noted to have a left pleural effusion and increased vascular markings, but no coalescent infiltrate. She is admitted for treatment of COPD exacerbation. A flu test was done in the ER, and negative. - Past Medical History Cardiac: HTN, Hyperlipidemia Pulmonary: Asthma, COPD Psych: Addictions (Alcohol) - Past Surgical History Past Surgical History: Cholecystectomy, , Other - Past Social History Smoke: # pack years, <1 pack per day Alcohol: Occassional (Patient says 4-5 beers twice a week; ) Drugs: None Lives: Alone Domestic Violence: Negative - Health Maintenance Health Maintenance: Cholesterol, Influenza Vaccine, Mammogram Influenza Vaccine: Current for this Influenza Season Pneumonia Vaccine: Yes Resuscitation Status: Resusciation Status Resuscitation Status Full Code - Unable to Obtain History Unable to Obtain: No Review of Systems - Review of Systems Constitutional: Fever, Malaise. negative: Chills Eyes: negative: pain, vision change ENT: negative: Ear Pain Respiratory: Cough, Shortness of Breath, SOB with Excertion, Sputum. negative: Hemoptysis Cardiovascular: negative: Chest Pain, Palpitations Gastrointestinal: negative: Nausea, Vomiting Genitourinary: negative: Dysuria, Frequency Musculoskeletal: negative: Neck Pain, Shoulder Pain Skin: negative: Rash, Lesions Neurological: Weakness. negative: Change in Speech, Confusion - Medications/Allergies Allergies/Adverse Reactions: Allergies Allergy/AdvReac Type Severity Reaction Status Date / Time No Known Allergies Allergy Verified 06/19/18 20:51 Current Inpatient Medications: Current Inpatient Medications Albuterol Sulfate (Ventolin) 2.5 mg NEB Q4 PRN PRN Reason: Wheezing Last Admin: 06/20/18 08:50 Dose: 2.5 mg Amoxicillin (Amoxil) 500 mg PO TID BAKARI Last Admin: 06/20/18 08:45 Dose: 500 mg Diltiazem HCl (Cardizem Cd) 120 mg PO DAILY [facility] Last Admin: 06/20/18 08:45 Dose: 120 mg Methylprednisolone Sodium Succinate (Solu-Medrol) 80 mg IVP Q12 [facility] Last Admin: 06/20/18 09:01 Dose: 80 mg Nicotine (Habitrol 21mg) 1 each TD DAILY [facility] Last Admin: 06/20/18 09:00 Dose: 1 each Sodium Chloride (Normal Saline Flush) 3 ml IV BID [facility] Last Admin: 06/20/18 09:00 Dose: 3 ml Exam - Exam Vital Signs: Vital Signs (72 hours) 06/19/18 06/19/18 06/19/18 20:28 20:49 21:19 Temperature 100.5 F H Pulse Rate 110 H 110 H Pulse Rate [ Left] Pulse Rate [ 118 H Pulse ox] Respiratory 24 Rate Blood Pressure 135/91 [Left Arm] O2 Sat by Pulse 91 L 94 94 Oximetry 06/19/18 06/19/18 06/19/18 21:49 22:00 22:30 Temperature Pulse Rate 117 H 107 H 104 H Pulse Rate [ Left] Pulse Rate [ Pulse ox] Respiratory Rate Blood Pressure [Left Arm] O2 Sat by Pulse 94 96 94 Oximetry 06/19/18 06/19/18 06/19/18 23:00 23:30 23:48 Temperature Pulse Rate 100 H 102 H Pulse Rate [ Left] Pulse Rate [ 101 H Pulse ox] Respiratory 21 Rate Blood Pressure 113/71 [Left Arm] O2 Sat by Pulse 95 94 92 Oximetry 06/20/18 06/20/18 06/20/18 00:00 00:20 00:21 Temperature 99.2 F Pulse Rate 95 H Pulse Rate [ Left] Pulse Rate [ 106 H Pulse ox] Respiratory 20 16 Rate Blood Pressure 130/74 [Left Arm] O2 Sat by Pulse 95 90 L Oximetry 06/20/18 06/20/18 06/20/18 00:30 01:00 01:30 Temperature Pulse Rate 94 H 95 H 95 H Pulse Rate [ Left] Pulse Rate [ Pulse ox] Respiratory Rate Blood Pressure [Left Arm] O2 Sat by Pulse 94 95 95 Oximetry 06/20/18 06/20/18 06/20/18 02:00 02:02 02:03 Temperature 99.3 F Pulse Rate 94 H 97 H Pulse Rate [ Left] Pulse Rate [ 78 Pulse ox] Respiratory 14 Rate Blood Pressure 126/62 [Left Arm] O2 Sat by Pulse 95 92 95 Oximetry 06/20/18 06/20/18 06/20/18 03:03 03:29 04:12 Temperature Pulse Rate 107 H Pulse Rate [ Left] Pulse Rate [ Pulse ox] Respiratory 20 Rate Blood Pressure [Left Arm] O2 Sat by Pulse 93 Oximetry 06/20/18 06/20/18 06/20/18 05:55 06:00 09:09 Temperature 97.1 F L 98.3 F Pulse Rate 101 H Pulse Rate [ 107 H Left] Pulse Rate [ 104 H Pulse ox] Respiratory 24 20 Rate Blood Pressure 120/74 112/69 [Left Arm] O2 Sat by Pulse 93 98 93 Oximetry General: Alert, Oriented to Person, Other (Acutely ill. Repetitively couging.) HEENT: Atraumatic, PERRLA, EOMI, Mouth Mucous membr. moist/[place], Nose Mucous membr. moist/[place] Neck: No: Stridor Lungs: Wheezes, Rhonchi, Prolonged Expiration, Decreased Air Movement Cardiovascular: Regular rate, Tachycardia Murmur: No: Systolic Murmur, Diastolic Murmur Murmur Location: No: [place] Abdomen: Normal bowel sounds, Soft, No tenderness, No hepatospenomegaly, No masses Genitourinary: No: Other Male Genitourinary: No: Other Female Genitourinary: No: Other Integumentary: Normal, Warm, Dry Extremities: No clubbing, No cyanosis, No edema Neurological: Normal speech Psych/Mental Status: Mental status NL - Laboratory Results Laboratory Results: Laboratory Results 06/19/18 06/19/18 06/19/18 21:15 21:15 21:15 WBC 11.80 RBC 4.57 Hgb 13.3 Hct 40.8 MCV 89.0 MCH 29.0 MCHC 32.5 RDW 15.8 H Plt Count 266 Neut % (Auto) 75.0 Lymph % (Auto) 17.1 [place] % (Auto) 5.6 Eos % (Auto) 1.4 Baso % (Auto) 0.9 Neut # (Auto) 8.9 H Lymph # (Auto) 2.0 [place] # (Auto) 0.7 Eos # (Auto) 0.2 Baso # (Auto) 0.1 Sodium 141 Potassium 4.1 Chloride 100 Carbon Dioxide 30 BUN 11 Creatinine 0.88 Estimated Creat Clear 217 Est GFR ( Amer) > 60 Est GFR (Non-Af Amer) > 60 Glucose 107 H Calcium 9.0 Total Bilirubin 0.8 AST 41 ALT 34 Alkaline Phosphatase 79 Creatine Kinase 50 CK-MB (CK-2) 0.6 Troponin I < 0.03 L NT-Pro-B Natriuret Pep 22.0 Total Protein 7.5 Albumin 4.4 Ethyl Alcohol < 10.0 06/20/18 06/20/18 06:25 06:25 WBC 13.30 H RBC 4.43 Hgb 12.9 Hct 39.6 MCV 89.0 MCH 29.1 MCHC 32.5 RDW 16.1 H Plt Count 269 Neut % (Auto) 90.9 H Lymph % (Auto) 6.5 L [place] % (Auto) 1.3 Eos % (Auto) 0.9 Baso % (Auto) 0.4 Neut # (Auto) 12.1 H Lymph # (Auto) 0.9 [place] # (Auto) 0.2 Eos # (Auto) 0.1 Baso # (Auto) 0.1 Sodium 140 Potassium 4.3 Chloride 103 Carbon Dioxide 26 BUN 15 Creatinine 0.55 Estimated Creat Clear 347 Est GFR ( Amer) > 60 Est GFR (Non-Af Amer) > 60 Glucose 223 H Calcium 9.1 Total Bilirubin 0.8 AST 44 ALT 35 Alkaline Phosphatase 92 Creatine Kinase CK-MB (CK-2) Troponin I NT-Pro-B Natriuret Pep Total Protein 7.0 Albumin 4.1 Ethyl Alcohol Assessment/Plan - Assessment/Plan (1) Acute exacerbation of COPD with asthma Status: Acute Current Visit: No Plan: Nebulizers, IV steroids Encouraged smoking cessation (2) Bronchitis Status: Acute Current Visit: Yes Assessment: Change antibiotic coverage from Amoxicillin to cefuroxime and azithromycin (3) Smoker Status: Acute Current Visit: Yes Assessment: Encouraged smoking cessation (4) Sinus tachycardia Status: Acute Current Visit: No Assessment: Minimize caffeine change to Xopenex from Duoneb (5) Essential hypertension Status: Chronic Current Visit: No Assessment: Currently well controlled VTE Assessment - RISK FACTOR SCORE VTE RISK FACTOR SCORES: AGE 40-60 YEARS, ANTICIPATED BED CONFINEMENT OR IMMOBILIZATION > 24 HOURS - RISK VTE MODERATE RISK: SCORE OF 2 (RISK PROXIMAL DVT 2-4%) PROPHYAXIS NEEDED (Or dered Lovenox)
[2018-06-20] MEDS ORDERED: AZITHROMYCIN 250 MG TABLET PO ONE (12:05)
[2018-06-20] MEDS: ENOXAPARIN SODIUM 30 MG/0.3 ML DISP.SYRIN SQ SCH (13:53)
[2018-06-20] MEDS: LEVALBUTEROL NEB 1.25 MG/3 ML VIAL.NEB IH SCH ×3 (15:53→20:52)
[2018-06-20] MEDS: CEFUROXIME AXETIL 250 MG TABLET PO SCH (20:51)
[2018-06-21] MEDS: GUAIFENESIN/CODEINE 10 ML S/F LIQUID DOSE CUP PO PRN (02:31)
[2018-06-21] MEDS: ALBUTEROL SULFATE 2.5 MG/3 ML AMPUL.NEB NEB PRN (02:45)
[2018-06-21] MEDS ORDERED: AZITHROMYCIN 250 MG TABLET PO SCH (09:00)
[2018-06-21] MEDS: methylPREDNISolone SOD SUCC 40 MG/ML VIAL IVP SCH (09:10)
[2018-06-21] MEDS: ENOXAPARIN SODIUM 30 MG/0.3 ML DISP.SYRIN SQ SCH (09:13)
[2018-06-21] MEDS: CEFUROXIME AXETIL 250 MG TABLET PO SCH (09:13)
[2018-06-21] MEDS: DILTIAZEM HCL 120 MG CAP.ER.24H PO SCH (09:14)
[2018-06-21] MEDS: NICOTINE 21mg 1 EACH PATCH.TD24 TD SCH (09:14)
[2018-06-21] MEDS: SALINE FLUSH 10 ML DISP.SYRIN IV SCH (09:14)
--- NOTE | 2018-06-21 09:14 | Inpatient Progress Note ---
Subjective - Required Recertification Statement I anticipate X number of days because-include discharge plan: 1 - Review of Systems Events since last encounter: Patient remains very tight today. Her cough is not well treated with current cough medications. We again discussed the need for her to stop smoking on discharge. General: Denies: Chills HEENT: Denies: Head Aches Pulmonary: Dyspnea, Cough Cardiovascular: Denies: Chest Pain, Palpitations Gastrointestinal: Denies: Nausea, Vomiting Genitourinary: Denies: Dysuria Musculoskeletal: Denies: Neck Pain, Shoulder Pain Neurological: Weakness. Denies: Confusion Objective - Exam Vitals and I&O: Vital Signs Temp 97.2 F L 06/21/18 05:58 Pulse 103 H 06/21/18 05:58 Resp 16 06/21/18 05:58 BP 130/70 06/21/18 05:58 Pulse Ox 96 06/21/18 05:58 Intake & Output 06/20/18 06/20/18 06/21/18 11:59 23:59 11:59 Intake Total 480 920 90 Output Total 1000 Balance 480 -80 90 Weight 160 kg Intake: IV 20 30 Right Antecubital 20 30 Oral 480 900 60 Output: Urine 1000 Other: Voiding Method Toilet Toilet Toilet # Voids 1 2 1 # Bowel Movements 0 General: Alert, Oriented to Person, Oriented to Place, Moderate distress (respiratory) HEENT: Atraumatic, PERRLA, Nose Mucous membr. moist/[place] Neck: Supple, No JVD Lungs: Wheezes, Prolonged Expiration, Decreased Air Movement Cardiovascular: Regular rate, Normal S1, Normal S2 Abdomen: Normal bowel sounds, Soft, No tenderness Extremities: No clubbing, No cyanosis, No edema Skin: Normal, [place] Neurological: Normal speech (but cannot speak in complete sentences due to dyspnea) Psych/Mental Status: Mental status NL - Results Results: Laboratory Results WBC 13.30 K/ul (4.00-12.00) H 06/20/18 06:25 RBC 4.43 M/ul (3.90-5.20) 06/20/18 06:25 Hgb 12.9 g/dL (12.0-16.0) 06/20/18 06:25 Hct 39.6 % (34.5-46.5) 06/20/18 06:25 MCV 89.0 fl (80.0-100.0) 06/20/18 06:25 MCH 29.1 pg (28.0-34.0) 06/20/18 06:25 MCHC 32.5 g/dL (30.0-36.0) 06/20/18 06:25 RDW 16.1 % (11.3-14.3) H 06/20/18 06:25 Plt Count 269 K/mm3 (130-400) 06/20/18 06:25 Neut % (Auto) 90.9 % (39.0-79.0) H 06/20/18 06:25 Lymph % (Auto) 6.5 % (16.0-50.0) L 06/20/18 06:25 [place] % (Auto) 1.3 % (0.0-11.0) 06/20/18 06:25 Eos % (Auto) 0.9 % (0.0-6.8) 06/20/18 06:25 Baso % (Auto) 0.4 (0.0-1.5) 06/20/18 06:25 Neut # (Auto) 12.1 # k/uL (1.4-7.7) H 06/20/18 06:25 Lymph # (Auto) 0.9 # k/uL (0.6-4.0) 06/20/18 06:25 [place] # (Auto) 0.2 # k/uL (0.0-0.9) 06/20/18 06:25 Eos # (Auto) 0.1 # k/uL (0.0-0.6) 06/20/18 06:25 Baso # (Auto) 0.1 # k/uL (0.0-0.5) 06/20/18 06:25 Sodium 140 mmol/L (136-145) 06/20/18 06:25 Potassium 4.3 mmol/L (3.5-5.1) 06/20/18 06:25 Chloride 103 mmol/L (98-107) 06/20/18 06:25 Carbon Dioxide 26 mmol/L (22-30) 06/20/18 06:25 BUN 15 mg/dL (7-17) 06/20/18 06:25 Creatinine 0.55 mg/dL (0.52-1.04) 06/20/18 06:25 Estimated Creat Clear 347 06/20/18 06:25 Est GFR ( Amer) > 60 (60-) 06/20/18 06:25 Est GFR (Non-Af Amer) > 60 (60-) 06/20/18 06:25 Glucose 223 mg/dL (74-106) H 06/20/18 06:25 Calcium 9.1 mg/dL (8.4-10.2) 06/20/18 06:25 Total Bilirubin 0.8 mg/dL (0.2-1.3) 06/20/18 06:25 AST 44 U/L (15-46) 06/20/18 06:25 ALT 35 U/L (13-69) 06/20/18 06:25 Alkaline Phosphatase 92 U/L (38-126) 06/20/18 06:25 Creatine Kinase 50 U/L (30-135) 06/19/18 21:15 CK-MB (CK-2) 0.6 ng/mL (0.0-5.6) 06/19/18 21:15 Troponin I < 0.03 ng/mL (0.03-0.06) L 06/19/18 21:15 NT-Pro-B Natriuret Pep 22.0 pg/mL (15.0-125.0) 06/19/18 21:15 Total Protein 7.0 g/dL (6.3-8.2) 06/20/18 06:25 Albumin 4.1 g/dL (3.5-5.0) 06/20/18 06:25 Ethyl Alcohol < 10.0 mg/dL (0.0-10.0) 06/19/18 21:15 Assessment/Plan - Assessment/Plan (1) Acute exacerbation of COPD with asthma Status: Acute Current Visit: No Assessment: Continue steroids/HFN STRONGLY urged her to stop smoking on discharge (2) Bronchitis Status: Acute Current Visit: Yes Assessment: Continue cefuroxime and azithromycin (3) Smoker Status: Acute Current Visit: Yes Assessment: Encouraged smoking cessation (4) Sinus tachycardia Status: Acute Current Visit: No (5) Essential hypertension Status: Chronic Current Visit: No Assessment: Currently well controlled
[2018-06-21] MEDS ORDERED: DEXTROMETHORPHAN PO PRN (09:16)
[2018-06-21] MEDS ORDERED: GUAIFENESIN PO PRN (09:16)
[2018-06-21] MEDS ORDERED: LORATADINE 10 MG TABLET PO SCH (10:00)
[2018-06-21] MEDS: LEVALBUTEROL NEB 1.25 MG/3 ML VIAL.NEB IH SCH ×3 (10:12→17:06)
--- NOTE | 2018-06-21 11:00 | Diagnostic Imaging Report ---
MARIANNE JACKSON [facility] [address] [facility] [address] [address] Report Submission Date: Jun 21, 2018 10:10:03 AM MASTER CONTROL SUPERVISOR Patient Study Name: JAMIE SANTANA Date: Jun 21, 2018 9:39:00 AM MASTER CONTROL SUPERVISOR Modality Type: DX Gender: F Description: CHEST 2VIEW : 63 Institution: [facility] Physician: MARIANNE JACKSON Examination: PA and lateral chest. History: Evaluate lung alfaro. COUGH/WHEEZING X 1 WEEK. COPD. Comparison exam: 19 June 2018 Findings: PA and lateral views of the chest demonstrates a normal cardiac and mediastinal silhouette. Tortuous aorta. No blunting of the costophrenic margins. Osseous structures are appropriate for age. Impression: No acute pulmonary process. Resolved left base effusion. Electronically signed on Jun 21, 2018 10:10:03 AM MASTER CONTROL SUPERVISOR by: Ry SANTOS
--- NOTE | 2018-06-21 17:28 | Discharge Summary ---
Discharge Summary - Discharge Sumary History of Present Illness: 53 year old female admitted with COPD exacerbation on June 20 2018. She had been admitted here earlier, however she had gone home and resumed smoking. Her dyspnea returned and she came to the ER for evaluation. She was noted to be hypoxic, and her CXR showed increased bronchovascular markings. She was admitted for IV steroids and antibiotics, as well as to obtain oxygen for her at home on discharge. Condition at Discharge: Stable Home Medications: Ambulatory Orders Medication Instructions Recorded Albuterol Sulfate [Proair Hfa] 2 inhalation IH Q 4-6 HRS PRN #1 06/09/18 each Amoxicillin [Trimox] 500 mg PO TID #20 capsule 06/09/18 Diltiazem HCl [Cardizem CD] 120 mg PO DAILY #30 cap.er.24h 06/09/18 Consultations this Visit: None Procedures this Visit: None Allergies/Adverse Reactions: Allergies Allergy/AdvReac Type Severity Reaction Status Date / Time No Known Allergies Allergy Verified 06/19/18 20:51 Patient Problems: Current Active Problems Problem Status Onset Bronchitis Acute Smoker Acute Discharge Summary: She continued to cough. She was discharged to home to continue all current medications with the addition of: 1. Phenergan DM cough syrup 10 cc po q4h prn cough 2. Ceftin 250 mg po BID x 7 days and a Z pack 3. A prednisone taper 60 mg po qd x 3 days, 40 mg po qd x 3 days and 20 mg po qd x 3 days 4. A refill is sent for her [facility] Course: Follow up with Dr. Pickard in one week
[2018-06-21 18:42] VITALS: BP 142/90
== END 2018-06-21 18:40 | disposition home or self-care (01) | DRG 191 ==
LOC: ED 20:28 → SOUTH 23:24
PROVIDERS: ADMIT Family Medicine; ATTEND Family Medicine
DX: J44.1 Chronic obstructive pulmonary disease with (acute) exacerbation (principal); J91.8 Pleural effusion in other conditions classified elsewhere; J20.9 Acute bronchitis, unspecified; I10 Essential (primary) hypertension; E78.5 Hyperlipidemia, unspecified; R00.0 Tachycardia, unspecified; F17.210 Nicotine dependence, cigarettes, uncomplicated
CPT/HCPCS: 71046; 80053; 85025; 93005; 94640; 94760; J1650; J2920; J7614; 71045; 80320; 82550; 82553; 83880; 84484; 99222; 99238; J2930; J7060; G0480; J1030; S1016

== ENCOUNTER 2018-06-19 20:28 | Emergency (ER) | payer OTHER | END 2018-06-19 23:24 | disposition other institution (70) | LOC: ED 20:28 | DX: J44.1 Chronic obstructive pulmonary disease with (acute) exacerbation (principal); Z72.0 Tobacco use | CPT/HCPCS: 36415; 71045; 80053; 80320; 82550; 82553; 83880; 84484; 85025; 94640; 96374; 99285; J2930; J7060; G0480; S1016 ==